=== PATIENT | male | born 1990 | race African-American/Black ===

== ENCOUNTER 2020-03-03 13:50 | Emergency (ER) | payer OTHER, SELFPAY | END 2020-03-03 14:25 | disposition home or self-care (01) | LOC: BURERS 13:50 | DX: S01.112A Laceration without foreign body of left eyelid and periocular area, initial encounter (principal); F17.210 Nicotine dependence, cigarettes, uncomplicated; W22.8XXA Striking against or struck by other objects, initial encounter | CPT/HCPCS: 12011 ==

== ENCOUNTER 2024-05-22 10:59 | Emergency (ER) | payer OTHER, SELFPAY ==
[2024-05-22] MEDS ORDERED: Boostrix 0.5 ML (Tdap) VIAL (>/=7 yrs of age) ONE (11:05)
== END 2024-05-22 11:16 | disposition home or self-care (01) ==
LOC: BURERS 10:59
DX: S91.331A Puncture wound without foreign body, right foot, initial encounter (principal); F17.210 Nicotine dependence, cigarettes, uncomplicated; W45.0XXA Nail entering through skin, initial encounter
CPT/HCPCS: 90471; 90715